=== PATIENT | female | born 1995 | race Caucasian/White ===

== ENCOUNTER 2023-07-28 09:55 | Emergency (ER) | payer OTHER, SELFPAY ==
--- NOTE | 2023-07-28 10:10 | ED.URI ---
HPI - URI/Sore Throat General Chief Complaint: Upper Respiratory Infection Stated Complaint: Rash/Chills Time Seen by Provider: 07/28/23 10:30 Source: patient, RN notes reviewed and old records reviewed Mode of arrival: ambulatory Limitations: no limitations History of Present Illness HPI Narrative: 28-year-old female presents to [facility] with complaints rash, general malaises, and fatigue that started yesterday. pt states had rash under left breast and left axilla for a week, pt states was places on terinafine a then rash started. Related Data Home Medications Medication Instructions Recorded Confirmed terbinafine HCl 250 mg tablet mg 07/28/23 Allergies Allergy/AdvReac Type Severity Reaction Status Date / Time No Known Allergies Allergy Verified 07/28/23 10:01 Review of Systems Constitutional: Constitutional: Reports as per HPI, Reports body ache(s) and Reports fatigue Eyes: Eyes: Reports no additional eye complaints ENT: Reports system reviewed and no additional complaints, except as documented Cardiovascular: Cardiovascular: Reports no additional cardiovascular complaints Respiratory: Respiratory: Reports no additional respiratory complaints Integumentary/Breasts: Skin/Breast: Reports as per HPI and Reports rash Neurologic: Reports system reviewed and no additional complaints, except as documented PMFSH Comments At the time of my signature, I reviewed and agree with the nursing past medical, surgical, social, and family history. There is no relevant family history pertinent to the patient complaint. Exam Const: General: cooperative, healthy appearing, no acute distress and well nourished Nutritional Appearance: well nourished Orientation/consciousness: patient oriented x3 Limitations: no limitations HENMT: Head: normal to inspection and normocephalic Ears: external ears normal, TM's normal bilaterally, mastoids normal and Abnormal EAC present Face/Nose/Sinus: normal facial exam Face and sinus: normal facial exam Mouth: Yes Normal oral and palatal mucosa present, Yes oropharynx normal and Yes moist mucous membranes Throat: posterior oropharynx normal, tonsils normal, uvula midline and no uvular edema Eyes: General: appearance normal, both eyes and all related structures Sclera: sclerae normal Pupils: Equal, round and reactive pupils present Resp: Effort & Inspection: normal respiratory effort, able to speak in complete sentences, no audible wheezes, no cough, no respiratory distress and no retractions Auscultation: clear to auscultation bilaterally, no crackles, no rales, no rhonchi and no wheezes Cardio: Rate: regular rate Rhythm: regular rhythm Skin: General skin exam: rashes Rashes: rashes noted ( urticarial rash noted to abdomen, neck, extremity. ) urticaria multiple locations color blanching and red Neuro: General: patient oriented x3 Cranial nerves: Yes Equal, round and reactive pupils present Psych: Appearance: grossly normal Course Course Emergency Course: Some parts of this dictation were generated by voice recognition software and may contain typographical and/or grammatical inaccuracies. Level of Care: Express Care Visit Vital Signs Vital signs: Reviewed MDM - URI/Sore Throat MDM Narrative Medical decision making narrative: patient with 2 rashes, 2nd started after starting terbinafine. patient's strep in clinic today was negative. Will discharge patient home and treat as allergic dermatitis with instructions on close monitoring and follow-up. Discussed plan of care with patient patient agreeable. Patient appropriate for discharge home and outpatient treatment. Patient is hemodynamically stable and non-septic appearing. Pt is appropriate for discharge home at this time in the setting of strict return/follow-up precautions to include s/s warranting immediate emergency department evaluation. Differential Diagnosis Differential diagnosis: Likely other ( allergic d
[2023-07-28 10:14] VITALS: BP 95/67; PULSE 84; RESP 18; TEMP 36.6; O2SAT 98
== END 2023-07-28 10:48 | disposition home or self-care (01) ==
PROVIDERS: Emergency Provider Registered Nurse
DX: L23.9 Allergic contact dermatitis, unspecified cause (principal)
CPT/HCPCS: 87081; 87880; 99213; G0463

== ENCOUNTER 2023-12-10 09:15 | Emergency (ER) | payer OTHER, SELFPAY ==
[2023-12-10 09:36] VITALS: BP 118/62; PULSE 59; RESP 16; TEMP 36.5; O2SAT 100
--- NOTE | 2023-12-10 10:12 | ED.GENADULT ---
HPI - General Adult General Chief complaint: Urogenital-Female Stated complaint: Urinary Problem Time Seen by Provider: 12/10/23 09:48 Source: patient, RN notes reviewed and old records reviewed Mode of arrival: ambulatory Limitations: no limitations History of Present Illness HPI narrative: 28-year-old female to Express Care with complaint of urinary frequency, urgency, retention, dysuria for 5 days. Patient has attempted to treat at home with [id number] medication with little relief. Patient denies nausea, fever, back pain. Related Data Allergies Allergy/AdvReac Type Severity Reaction Status Date / Time No Known Allergies Allergy Verified 07/28/23 10:01 Review of Systems Review of Systems: All systems reviewed & are unremarkable except as noted in HPI and below Constitutional: Constitutional: Reports as per HPI and Denies fever(s) Eyes: Eyes: Reports no additional eye complaints ENT: Reports system reviewed and no additional complaints, except as documented Cardiovascular: Cardiovascular: Reports no additional cardiovascular complaints, Denies chest pain and Denies dyspnea Respiratory: Respiratory: Reports no additional respiratory complaints, Denies cough and Denies dyspnea Gastrointestinal: Gastrointestinal: Reports abdominal pain (lower abd), Denies diarrhea, Denies nausea and Denies vomiting Genitourinary: Genitourinary: Reports as per HPI, Reports nocturia, Reports dysuria, Reports urinary hesitancy and Reports urinary urgency Musculoskeletal: Musculoskeletal: Reports no additional musculoskeletal complaints Neurologic: Reports system reviewed and no additional complaints, except as documented Psychiatric: Psychiatric: Reports no additional psychiatric complaints PMFSH Comments At the time of my signature, I reviewed and agree with the nursing past medical, surgical, social, and family history. There is no relevant family history pertinent to the patient complaint. Exam Const: General: cooperative, healthy appearing, comfortable, no acute distress, alert and well nourished Nutritional Appearance: well nourished Orientation/consciousness: patient oriented x3 Limitations: no limitations HENMT: Head: normal to inspection Ears: external ears normal Face/Nose/Sinus: Normal external nose present, Normal nares present, normal facial exam, No erythema and No edema Face and sinus: normal facial exam, no erythema and no edema Mouth: Yes Normal oral and palatal mucosa present Eyes: General: appearance normal, both eyes and all related structures Neck: Neck: normal visual inspection, full ROM and no meningeal signs Lymphatic: no lymphadenopathy noted and no lymphedema noted Chest: Chest palpation & inspection: normal inspection of the chest Resp: Effort & Inspection: normal respiratory effort and able to speak in complete sentences Auscultation: clear to auscultation bilaterally Cardio: Jugular venous distension: no JVD Rate: regular rate Rhythm: regular rhythm GI: GI Palp: Yes abdominal tenderness (lower) : General: Yes no CVA tenderness Back/Spine/Pelvis: Cervical Spine: cervical ROM normal Skin: General skin exam: normal color, no rashes or lesions noted and turgor normal Neuro: General: patient oriented x3, gait normal, moves all extremities and no meningeal signs Speech: normal speech Gait exam (Neuro): Normal gait present Extrem: General: normal to inspection, full ROM and capillary refill normal Psych: Appearance: grossly normal and well kempt Course Course Emergency Course: Some parts of this dictation were generated by voice recognition software and may contain typographical and/or grammatical inaccuracies. Level of Care: Express Care Visit Vital Signs Vital signs: Vital Signs Temperature 36.5 C 12/10/23 09:36 Pulse Rate 59 L 12/10/23 09:36 Respiratory Rate 16 12/10/23 09:36 Blood Pressure 118/62 12/10/23 09:36 Pulse Oximetry 100 12/10/23 09:36 Oxyg
== END 2023-12-10 10:24 | disposition home or self-care (01) ==
PROVIDERS: Emergency Provider Nurse Practitioner Family
DX: N30.01 Acute cystitis with hematuria (principal); B96.20 Unspecified Escherichia coli [E. coli] as the cause of diseases classified elsewhere
CPT/HCPCS: 81003; 87077; 87086; 87088; 87186; 99213; G0463

== ENCOUNTER 2024-10-10 15:14 | Emergency (ER) | payer OTHER, SELFPAY ==
[2024-10-10 15:20] VITALS: BP 124/79; PULSE 80; RESP 16; TEMP 36.7; O2SAT 100
[2024-10-10 15:45] LABS: EDCOVIDSCREEN Negative (Negative); EDINFLUASCREEN Positive (Negative); EDINFLUBSCREEN Negative (Negative); EDSTREPNEGPOS1 Negative (Negative)
--- NOTE | 2024-10-10 15:58 | ED.URI ---
HPI - URI/Sore Throat General Chief Complaint: Upper Respiratory Infection Stated Complaint: Sinus Congestion/Headache/Fever Time Seen by Provider: 10/10/24 15:45 Source: patient, RN notes reviewed and old records reviewed Mode of arrival: ambulatory Limitations: no limitations History of Present Illness HPI Narrative: 29year old female who presents to [facility] care with complaints of starting night with not feeling well with some sinus congestion, some fevers, ear pain, sore throat, and cough. Patient states that she has had diarrhea for the past 2 days when she eats. Patient reports that she has been taking Tylenol, Ibuprofen, cold and flu medication. MD elicited complaint: cough and sore throat Onset (ago): day(s) (4) Severity: moderate Treatments prior to arrival: acetaminophen, ibuprofen and other (cold and flu medication) Related Data Allergies Allergy/AdvReac Type Severity Reaction Status Date / Time amoxicillin Allergy Unknown Unknown Verified 10/10/24 15:27 Review of Systems Review of Systems: CONSTITUTIONAL:Reports malaise, chills, sweats, or fever. EYES: Denies visual changes, redness, or discharge. ENT: Reports rhinorrhea, congestion, sinus pain, positive for otalgia and sore throat. CARDIOVASCULAR: Denies chest pain, palpitations, or edema. RESPIRATORY: Reports cough.? Denies dyspnea. GASTROINTESTINAL: Denies abdominal pain, nausea, vomiting, + diarrhea SKIN: Denies rash or itching. MUSCULOSKELETAL: Reports myalgia. NEUROLOGIC: Reports headache. All systems reviewed & are unremarkable except as noted in HPI and below PMFSH Past Medical History Medical History (Updated 10/12/24 @ 19:55 by Alondra Silav NP) Urinary tract infection Social History Social History Smoking status: Never smoker Alcohol intake: current Alcohol use details: social Substance use type: does not use Living arrangements: with family Gender identity (if verbalized by the patient): Female Comments At time of signature, agree with nursing past medical, surgical, social and family history. There is no relevant family history pertinent to the presenting complaint Exam Narrative: GENERAL: Well-appearing, well-nourished, and in no acute distress. HEAD: Normocephalic EYES: PERRLA, conjunctivae clear ENT: Nares clear, turbinates edematous and erythematous, clear discharge, sinus pressure,. Mucous membranes moist. TM pearly berry with dull light reflex bilaterally; no tragal tenderness. Oropharynx erythematous without lesions. Tonsils not enlarged and without exudate, no drooling, no hoarseness, no trismus, uvula midline.post nasal drainage. NECK: Supple. No lymphadenopathy CHEST: Clear to auscultation, breath sounds equal. No wheezing, rhonchi, rales, or stridor. No respiratory distress, speaks in full sentences.cough noted SAO2 100% cough noted HEART: Regular rate and rhythm. No murmur heard. SKIN: Warm, dry, no rash. NEURO: Alert and oriented x3. PSYCH: Normal mood and affect Course Course Emergency Course: Patient is aware of diagnosis, understands and agrees to treatment plan.? Anticipatory guidance given.? Patient agrees to follow-up as directed and is aware of reasons to seek care at the emergency department. Portions of this record may have been created with voice recognition software Level of Care: Express Care Visit Vital Signs Vital signs: Vital Signs Temperature 36.7 C 10/10/24 15:20 Pulse Rate 80 10/10/24 15:20 Respiratory Rate 16 10/10/24 15:20 Blood Pressure 124/79 10/10/24 15:20 Pulse Oximetry 100 10/10/24 15:20 Oxygen Delivery Room Air 10/10/24 15:20 Temperature 36.7 C 10/10/24 15:20 Pulse Rate 80 10/10/24 15:20 Respiratory Rate 16 10/10/24 15:20 Blood Pressure 124/79 10/10/24 15:20 Pulse Oximetry 100 10/10/24 15:20 Oxygen Delivery Room Air 10/10/24 15:20 Reviewed MDM - URI/Sore Throat MDM Narrative Medical decision making narrative: Differential diagnosis considered: [place] virus, strep pharyngitis, allergic rhinitis, upper respiratory tract infection, sinusitis, rhinosinusitis, nasopharyngitis. viral pharyngitis, otitis media, otitis externa, pneumonia, bronchitis, viral cough syndrome, viral syndrome, and influenza.? Exam findings show no acute concerns or changes; patient is non-toxic appearing and is in no distress.? Patient is appropriate for outpatient treatment and follow-up. Differential Diagnosis Differential diagnosis: Likely upper respiratory infection, otitis media, viral infection, influenza, pharyngitis and other (COVID acute cough) Medical Records Attestation: I reviewed the patient's medical records. Lab Data Attestation: I reviewed the patient's lab results. Lab results narrative: Influenza A positive,Influenza B negative, COVID antigen negative, strep screen negative, culture sent Labs: Lab Results 10/10/24 Range/Units 15:28 POC Influenza A Ag Positive (Negative) POC Influenza B Ag Negative (Negative) POC SARS CoV-2 Ag Negative (Negative) POC Grp A Strep Screen Negative (Negative) reviewed Critical Care Time Critical Care Time Critical Care Time: No Discharge Plan Discharge Clinical Impression: Influenza A Patient Disposition: Home, Self-Care Condition: Stable Instructions: Antibiotic Form Additional Instructions: Increase fluids especially juices and water [id number] cough and cold medicine of your choice for your symptoms Continue your inhaler/nebulizer as directed Steroids as directed--take with food heat to the face 20-30 minutes 4-6 times a day for pain Salt water gargles, throat lozenges or throat sprays as desired Tylenol or ibuprofen for any fever pain recommend alternating so you can have something every 4 hours as needed You must be fever free for 24 hours without use of Tylenol or ibuprofen before you can return to work If your symptoms persist, change or worsen significantly before you can contact your personal physician then please, without delay, go to the emergency department for further evaluation. Follow-up with PCP in 7-10 days or sooner if needed Patient Language: [place] Prescriptions: New albuterol sulfate [Ventolin HFA] 90 mcg/actuation HFA aerosol inhaler 2 puff inhalation QID PRN (Reason: shortness of breath or wheezing) Qty: 6.7 0RF Follow-up/Referrals: PHYSICIAN,CUSTOMER EXPERIENCE ANALYST [Primary Care Provider] - Time of Disposition: 16:02 Quality [place] Coma Scale Eyes: Open Verbal: Oriented and Alert Motor: Follows Commands [place] Coma Total Score: 15
--- OUTSIDE RECORDS SUMMARY | 2024-10-10 17:55 | XMS_ITS | Referral Summary ---
Author Organization [facility] [employer] Address [address] [place] [address] Care Team Providers Care Emergency Department Aide Name Role Phone Unavailable Primary Care Provider Unavailabl e Source Comments [facility] [employer],non-owned Affiliates and Associated Physician Practices is amultiple site organization consisting of ambulatory clinics and hospital sitesin [place], [place] and [place]. This disclosure is being madepursuant to the Care Everywhere program and may not contain all information available regarding this patient. Last updated 18.[facility] [employer] Allergies Active Allergy Reactions Criticality Noted Date Comments Augmentin GI Discomfort 06/20/2019 Medications * Be aware that medications may not be up to date on this document. Alwaysverify current medications with the patient. Medication Sig Dispensed Refills Start Date End Date Status Ggkjfp-DeIlr-CJX-FA-DHA w/o A (VINI) 30-1.2-265 MG Take by mouth once daily Active Active Problems Comments Yes No known active problems Social History Tobacco Use Types Packs/Day Years Used Date Smoking Tobacco: Never Smokeless Tobacco: Never Tobacco Cessation:Counseling Given: Yes Alcohol Use Standard Drinks/Week Comments Not Asked 0 (1 standard drink = 0.6 oz pur e alcohol) Comments Yes Sex and Gender Information Value Date Recorded Sex Assigned at Not on file Gender Identity Not on file Sexual Orientation Not on file Last Filed Vital Signs Vital Sign Reading Time Taken Comments Blood Pressure 118/76 06/20/2019 11:54 AM CDT Pulse 104 06/20/2019 11:54 AM CDT Temperature 36.3 C (97.3 F) 06/20/2019 11:54 AM CDT Respiratory Rate 17 04/18/2019 2:04 PM CDT Oxygen Saturation 96% 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
--- OUTSIDE RECORDS SUMMARY | 2024-10-10 17:55 | XMS_ITS | Patient Health Summary ---
Author Organization [facility] [employer] Address [address] [place] [address] Care Team Providers Care Tabber Name Role Phone Unavailable Primary Care Provider Unavailabl e Note from [facility],non-owned Affiliates and Associated Physician Practices is amultiple site organization consisting of ambulatory clinics and hospital sitesin [place], [place], [place] and [place]. This disclosure is being madepursuant to the Care Everywhere program and may not contain all information available regarding this patient. Last updated 18.[facility] [employer] Allergies * Augmentin(GI Discomfort) * Amoxicillin(GI Discomfort),Inactive Medications * Be aware that medications may not be up to date on this document. Alwaysverify current medications with the patient. 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 Inhaled Oxygen Concentration - - Weight 74.8 kg (165 lb) 06/20/2019 11:54 AM CDT Height 170.2 cm (5' 7 ) 06/20/2019 11:54 AM CDT Body Mass Index 25.84 06/20/2019 11:54 AM CDT Procedures * STREP A SCREEN - POINT OF CARE (AMB) STL(Performed 10/13/2018) Performed for Acute frontal sinusitis, recurrence not specified * STREP A SCREEN - POINT OF CARE (AMB) STL(Performed 03/16/2018) Performed for Acute pharyngitis, unspecified etiology * STREP A SCREEN - POINT OF CARE (AMB) STL(Performed 05/05/2017) Performed for Strep throat * STREP A SCREEN - POINT OF CARE (AMB) STL(Performed 08/03/2016) Performed for Acute maxillary sinusitis, recurrence not specified Results * STREP A SCREEN (10/13/2018) Only the most recent of4 resultswithin the time period is included. Strep A Rapid POCT Negative Negative Strep A Internal Control Present Lot # [id number] Expiration Date 05/23/2020 Throat ENTIRE THROAT (SURFACE REGION OF NECK) / Unknown 10/13/2018 Janeth Fairbanks APRN-FISH AGENT LAB - POINT OF CARE ORDERABLES
--- OUTSIDE RECORDS SUMMARY | 2024-10-10 17:55 | XMS_ITS | Clinical Summary ---
Author Organization [facility] [employer] Address [address] [place] [address] Care Team Providers Care Customer Support Consultant Name Role Phone Unavailable Primary Care Provider Unavailabl e Source Comments [facility] [employer],non-owned Affiliates and Associated Physician Practices is amultiple site organization consisting of ambulatory clinics and hospital sitesin [place], [place], [place] and [place]. This disclosure is being madepursuant to the Care Everywhere program and may not contain all information available regarding this patient. Last updated [email or web address] Allergies Active Allergy Reactions Criticality Noted Date Comments Augmentin GI Discomfort 06/20/2019 Medications * Be aware that medications may not be up to date on this document. Alwaysverify current medications with the patient. 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 Inhaled Oxygen Concentration - - Weight 74.8 kg (165 lb) 06/20/2019 11:54 AM CDT Height 170.2 cm (5' 7 ) 06/20/2019 11:54 AM CDT Body Mass Index 25.84 06/20/2019 11:54 AM CDT Plan of Treatment Health Maintenance Due Date Last Done Comments PAP SMEAR 1993 HIV SCREENING 2008 HEPATITIS C SCREENING 05/11/2011 DTAP/TDAP/TD VACCINES (1 - Tdap) 2012 HEPATITIS B VACCINE (1 of 3 - 19+ 3-dose series) 2012 COVID-19 VACCINE ( - 2023-2 5 season) 2024 INFLUENZA VACCINE (#1) 2024 06/10/2019 DEPRESSION SCREENING 08/24/2024 ZOSTER VACCINE (1 of 2) 2043 Respiratory Syncytial Virus (RSV) Vaccine Pt: or over 60 yrs (1 - 1-dose 75+ series) 2068 HIB VACCINE Aged Out No longer eligi ble based on patient's age to complete this topic HPV VACCINE Aged Out No longer eligi ble based on patient's age to complete this topic MENINGOCOCCAL (Group B) VACCINE Aged Out No longer eligible based on patient's age to complete this topic MENINGOCOCCAL VACCINE Aged Out No enzo sherif eligible based on patient's age to complete this topic PNEUMOCOCCAL VACCINE Aged Out No long er eligible based on patient's age to complete this topic
--- OUTSIDE RECORDS SUMMARY | 2024-10-10 17:55 | XMS_ITS | Clinical Summary ---
Author Organization [facility] Address [address] [place] [address] Phone Care Team Providers Care Gate Cutter Name Role Phone Provider, None Primary Care Provider Unavailabl e Allergies Active Allergy Reactions Criticality Noted Date Comments Amoxicillin-Pot Clavulanate Nausea 06/20/20 19 Medications traZODone (DESYREL) 50 MG Tablet Take 1 Tab by mouth nightly. 20 Tab 08/26/2017 Active Active Problems No known active problems Social History Tobacco Use Types Packs/Day Years Used Date Smoking Tobacco: Never Smokeless Tobacco: Never Alcohol Use Standard Drinks/Week Comments No 0 (1 standard drink = 0.6 oz pur e alcohol) Comments No Sex and Gender Information Value Date Recorded Sex Assigned at Not on file Legal Sex Female 11:44 PM CDT Gender Identity Not on file Sexual Orientation Not on file Last Filed Vital Signs Vital Sign Reading Time Taken Comments Blood Pressure 110/62 01/01/2021 8:58 AM CDT Pulse 93 01/01/2021 8:58 AM CDT Temperature 36.8 C (98.3 F) 01/01/2021 8:58 AM CDT Respiratory Rate 16 01/01/2021 8:58 AM CDT Oxygen Saturation 98% 01/01/2021 8:58 AM CDT Inhaled Oxygen Concentration - - Weight 61.2 kg (135 lb) 01/01/2021 8:58 AM CDT Height 170.2 cm (5' 7 ) 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 Body Mass Index 21.14 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 Plan of Treatment Health Maintenance Due Date Last Done Comments Hepatitis C Virus (HCV) Screening 1993 Hepatitis B Immunization (1 of 3 - 19+ 3-dose series) 2012 Pap Smear 2014 Cervical Cancer Screening (CCS) 2023 HPV/Cotest 2023 Influenza Immunization (#1) 2024 06/10/2019 SARS-COV-2 Immunization ( season) 2024 06/04/2021, 05/14/2021 Respiratory Syncytial Virus (RSV) Immunization (Adult) (1 - 1-dose 75+ series) 2068 DTaP/Tdap/Td Immunization Discontinued 2018, 12/20/2015 TdaP Immunization Completed 06/10/2019 Meningococcal Immunization (ACWY) Aged Out No longer eligible based on patient's age to complete this topic Pneumococcal Immunization Combined Aged Out No longer eligible based on patient's age to complete this topic Rotavirus Immunization Aged Out No lo nger eligible based on patient's age to complete this topic Care Teams Gate Cutter Relationship Specialty Start Date End Date Provider, None [place] PCP - General 07/21/15
--- OUTSIDE RECORDS SUMMARY | 2024-10-10 17:55 | XMS_ITS | Continuity of Care Document ---
Author Organization [facility] Address [address] [place] [address] [place] [address] Phone Care Team Providers Care Toll Settlement Clerk Name Role Phone Tha March MD Unavailable Unavailable Allergies, Adverse Reactions, Alerts Substance Reaction Status Criticality No Known Allergies Active No Inform ation Medications Medication Instructions Dosage Effective Dates (start - stop) Status Comments Artificial Tears (polyvinyl alcohol) 1.4 % eye drops instill 1 drop by ophthalmic route 3 times every day 1 drop - Active Prena1 True 30 mg iron-1.4 mg-300 mg oral pack - Active Procedures Procedure Date Office/outpatient Visit, Est Office/outpatient Visit, New Advance Directives Directive Yes / No Effective Date File Name No Information Encounters Encounter Description Practice Location Reason(s) For Visit Diagnoses Date Provider Providers Copied on Encounter Office/outpa tient Visit, [facility], [address] [place] [address] [address], [place], [place], [id number], [place] tel:[phone] SEC Charlie Heath Follow Up (chief complaint) Traumatic iritisCorneal edema of left eye23 weeks gestation of 0-201 9 Joaquim Almazan. [address] [facility], [address], [place], [place], [id number], [place]. tel:[phone] Referring Provider: Rosaline Fowler OD, [address], [place], [address]. tel:[phone] Office/outpa tient Visit, [facility], [address], [place], [place], [id number], [place] tel:[phone] SEC William CRYSTAL Professional WIE (chief complaint) Traumatic weeks gestation of pregnancyCorn eal edema of left eyeBullae 9 Joaquim Almazan. [address] [facility], [address], [place], [place], [id number], [place]. tel:[phone] Referring Provider: Rosaline Fowler OD, [facility] [address] [place] [address], [address]. tel:[phone] Family History Family Member Type Diagnosis Age At Onset No Information Payers Payer name Insurance type Covered libertarian ID Rose Marie mike(gregoria) [employer] OSPINA [id number] Social History Type Description Quantity Date Captured Comments Alcohol Use Details No Caffeine Use Details No Tobacco Use Status Current non-smoker 17 Smoking Status Never smoker Non-Smoking Tobacco Use Details : No Details Available : No Details Available Sex Female Chief Complaint And Reason For Visit From encounter dated '05/03/2019 13:15'. Follow Up (chief complaint). Description: The 23 year old female presents for evaluation of 4 day Follow Up in the left eye. Seen in the clinic for traumatic iritis and corneal edema 04/29/2019. Pt is 23 to 24 weeks so not topical or steroid therapy at this time. BCL OS night and day 8.6 13.8 -0.25. Pt is using artificial tears TID-QID OS, pt reports good compliance. Pt reports it has gotten a lot better, still a little blurry though. Pt denies dryness, watering, itching and burning OS. Pt reports mild swelling still and states it is a little tender still. Reason For Referral Reason For Referral No Information Plan Of Treatment Date Type Action Status Patient Education Iritis: Care Instructglenna solo completed Patient Education Iritis: Care Instructglenna solo completed History Of Present Illness Encounter Date Complaint History Of Prese nt Illness Follow Up The 23 year old female presents for evaluation of 4 day Follow Up in the left eye. Seen in the clinic for traumatic iritis and corneal edema 04/29/2019. Pt is 23 to 24 weeks so not topical or steroid therapy at this time. BCL OS night and day 8.6 13.8 -0.25. Pt is using artificial tears TID-QID OS, pt reports good compliance. Pt reports it has gotten a lot better, still a little blurry though. Pt denies dryness, watering, itching and burning OS. Pt reports mild swelling still and states it is a little tender still. WIE The 23 year old female presents for evaluation of WIE in the left eye. Patient states she scratched her left eye with a heating pad 3 days ago. Patient states OS is painful, watering, and light sensitive. Patient does not have a PCP Functional Status Date Functional Assessmen t No Information Instructions Date Instruction Additional Infor mayco Impression/Plan Impression/Plan Assessments Type Assessment Date assessment Traumatic iritis assessment Corneal edema of left eye assessment 23 weeks gestation of Patient Care Teams Name Effective Dates (start - stop) Status Members No Information
--- OUTSIDE RECORDS SUMMARY | 2024-10-10 17:55 | XMS_ITS | Referral Summary ---
Author Organization [facility] Medical Office Building B Address [address] [place] [address] Care Team Providers Care Furniture Servicer Name Role Phone No, Physician Primary Care Provider [phone] Encounters Date Type Department Care Team Description 09/08/2024 3:00 PM PRODUCTION PATTERN MAKER Office Visit [facility] [address] [facility] [address] [place] [address] Karla Ochoa NP Well woman exam (Primary Dx) from Last 3 Months Allergies Active Allergy Reactions Criticality Noted Date Comments Amoxicillin-Pot Clavulanate Stomach upset,Nausea only Low 06/20/2019 Patient does not believe she has an allergy. Medications nystatin cream APPLY TOPICALLY TO THE AFFECTED AREA TWICE DAILY FOR 10 DAYS 3 Active predniSONE (DELTASONE) 20 mg tablet Take 1 tablet (20 mg) by mouth 3 Active fluconazole (DIFLUCAN) 150 mg tablet Take one tablet and repeat in 3 days. 2 tablet 4 Active Active Problems No known active problems Resolved Problems Problem Noted Date Diagnosed Date Resolved Date Vaginal delivery 10/18/2019 41 weeks gestation of 10/18/2019 Immunizations Immunization Administration Dates Next Due Influenza, Quadrivalent, Spl it, Preservative Free, Intramuscular 06/10/2019 Tdap 06/10/2019 Social History Tobacco Use Types Packs/Day Years Used Date Smoking Tobacco: Never Smokeless Tobacco: Never Tobacco Cessation:Counseling Given: Not Answered Alcohol Use Standard Drinks/Week Comments No 0 (1 standard drink = 0.6 oz pur e alcohol) PHQ-2 Answer Date Recorded PHQ-2 Total Score (If total score is 3 or more points, staff should administer the PHQ-9) 0 09/08/2024 Comments No Sex and Gender Information Value Date Recorded Sex Assigned at Not on file Legal Sex Female 11:33 AM PRODUCTION PATTERN MAKER Gender Identity Not on file Sexual Orientation Not on file Last Filed Vital Signs Vital Sign Reading Time Taken Comments Blood Pressure 118/70 09/08/2024 3:10 PM PRODUCTION PATTERN MAKER Pulse 125 04/14/2022 9:56 AM CDT Temperature 38.3 C (101 F) 04/14/2022 9:56 AM CDT Respiratory Rate 18 04/14/2022 9:56 AM CDT Oxygen Saturation 98% 04/14/2022 9:56 AM CDT Inhaled Oxygen Concentration - - Weight 74 kg (163 lb 3.2 oz) 09/08/2024 3:10 PM PRODUCTION PATTERN MAKER Height 170.2 cm (5' 7 ) 09/08/2024 3:10 PM PRODUCTION PATTERN MAKER Body Mass Index 25.56 09/08/2024 3:10 PM PRODUCTION PATTERN MAKER Plan of Treatment Not on file Procedures Procedure Name Priority Date/Time Associated Diagnosis Comments PAP, REFLEX HPV Routine 09/08/2024 3:40 PM PRODUCTION PATTERN MAKER Well woman exam HEPATITIS C ANTIBODY Routine 03/10/2019 4:13 PM CDT Encounter for supervision of normal first in first trimester 11 weeks gestation of from Last 3 Months or Most Recently Relevant to Health Maintenance Results * (ABNORMAL) Pap, reflex HPV (09/08/2024 3:40 PM PRODUCTION PATTERN MAKER) CLINICAL INFORMATION: Alanna Alvarenga Comment:Routine exam LMP Alanna Alvarenga Comment:08/25/24 Previous Pap Alanna Alvarenga Comment:None given Prev. Bx Alanna Alvarenga Comment:None given SOURCE: Alanna Alvarenga Comment:Cervix, Endocervix Pap, specimen adequacy Alanna Alvarenga Comment: Satisfactory for evaluation. Endocervical/transformation zone component present. Pap, general categorization (A) Alanna Alvarenga Comment:Cytology Results: Ep ithelial Cell Abnormality HPV interp (A) Alanna Alvarenga Comment:Low Grade Squamous I ntraepithelial Lesion (LSIL) COMMENTS [facility] Comment: This Pap test has been evaluated with computer assisted technology. Suggest clinical correlation and follow-up as clinically appropriate Air Bag Builder Que [facility] Alvarenga Comment: [place], CT(ASCP) CT screening location: [place] [address] [place] [address] Pathologist [facility] Alvarenga Comment: Phillip Farias M.D., Board Certified in Anatomic Pathology and Cytopathology. (electronic signature) Comment [facility] Al[facility]ga Comment: EXPLANATORY NOTE: The Pap is a screening test for cervical cancer. It is not a diagnostic test and is subject to false negative and false positive results. It is most reliable when a satisfactory sample, regularly obtained, is submitted with relevant clinical findings and history, and when the Pap result is evaluated along with historic and current clinical information. Thin prep 09/08/2024 3:40 PM PRODUCTION PATTERN MAKER 09/09/2024 2:53 AM PRODUCTION PATTERN MAKER us Karla Ochoa NP LAB CYTOLOGY ORDERABLES Final Re sult Performing Organization Address [facility]/ZIP Co de Phone Number [place] [address] [place] [address] * Hepatitis C antibody (03/10/2019 4:13 PM CDT) Hep C Ab Negative Negative TINO TOBIAS (CARLINE) Comment:Testing performed by : [facility], [address] [place] [address]., [address] Blood specimen (specimen) 03/10/2019 4:13 PM CDT 03/11/2019 10:50 AM CDT Olivier Serrano MD LAB MICROBIOLOGY - GENERAL ORDERABLES Final Result TINO TOBIAS (CARLINE) [address] [facility] Department [place] [address] from Last 3 Months or Most Recently Relevant to Health Maintenance Insurance CIGNA CIGNA Advance Directives For more information, please contact: [phone] * Full Code (Latest Code Status on File) Date Activated Date Inactivated Comments 09/06/2019 5:55 AM 09/08/2019 10:50 PM Full CPR in case of cardiopulmonary arrest Care Teams Furniture Servicer Relationship Specialty Start Date End Date No, Physician PCP - General 05/04/17
--- OUTSIDE RECORDS SUMMARY | 2024-10-10 17:55 | XMS_ITS | Clinical Summary ---
Author Organization [facility] Medical Office Building B Address [address] [place] [address] Care Team Providers Care Stemhole Borer And Topper Name Role Phone No, Physician Primary Care Provider [phone] Allergies Active Allergy Reactions Criticality Noted Date [...] delivery 10/18/2019 41 weeks gestation of 10/18/2019 Encounters Date Type Department Care Team Description 09/08/2024 3:00 PM MEDICAL RECORD CLERK Office Visit [facility] [address] [facility] [address] [place] [address] Karla Ochoa NP Well woman exam (Primary Dx) from Last 3 Months Immunizations Immunization Administration Dates Next Due Influenza, Quadrivalent, Spl it, Preservative Free, Intramuscular 06/10/2019 Tdap 06/10/2019 Surgical History Surgery Date Site/Laterality Comments VAGINAL DELIVERY 09/06/2019 NO PAST SURGERIES Medical History Medical History Date Comments No pertinent past medical history Family History Medical History Relation Name Comments Breast cancer Maternal Grandmother Relation Name Status Comments Father Maternal Grandmother Social History Tobacco Use Types Packs/Day Years [...] on file Legal Sex Female 11:33 AM MEDICAL RECORD CLERK Gender Identity Not on file Sexual Orientation Not on file Obstetrics History Para Term AB IAB SAB Ectopic Multiple Livin g Live Births 2 1 1 0 1 0 1 0 0 1 1 Date Outcome GA Total Labor Labor/2nd/3rd Weight Sex Type Anes PTL Ariadna A1 A5 Name Clin 2019 Term 41w 0d 3h 08m 2h 35m/0h 25m/0h 08m 3.697 kg (8 lb 2.4 oz) F Vag-S pont Epidur al N Livin g 8 9 ANDREW ,GIRL CHARITY Serrano , Olivier Merritt MD Complications:None Delivery Location:This [facility] 2020 SAB SAB Last Filed Vital Signs Vital Sign Reading Time Taken Comments Blood Pressure 118/70 09/08/2024 3:10 PM MEDICAL RECORD CLERK Pulse 125 04/14/2022 9:56 AM CDT Temperature 38.3 C (101 F) 04/14/2022 9:56 AM CDT Respiratory Rate 18 04/14/2022 9:56 AM CDT Oxygen Saturation 98% 04/14/2022 9:56 AM CDT Inhaled Oxygen Concentration - - Weight 74 kg (163 lb 3.2 oz) 09/08/2024 3:10 PM MEDICAL RECORD CLERK Height 170.2 cm (5' 7 ) 09/08/2024 3:10 PM MEDICAL RECORD CLERK Body Mass Index 25.56 09/08/2024 3:10 PM MEDICAL RECORD CLERK Plan of Treatment Health Maintenance Due Date Last Done Comments Varicella Vaccines (1 of 2 - 13+ 2-dose series) 2006 Hepatitis B Screening 2011 Covid-19 Vaccine ( season) 2024 06/04/2021, 05/14/2021 Influenza Vaccine (#1) 2024 06/10/2019 Cervical Cancer Screening 09/08/20252024, 08/27/2023, 05/26/2022, Additional history exists Depression Screening 09/08/2025 09/08/2024, 08/27/2023, 05/26/2022, Additional history exists Regular Well Visit/Exam 18-64 09/08/2025 09/08/2024, 08/27/2023, 05/26/2022, Additional history exists DTaP/Tdap/Td Vaccine (2 - Td or Tdap) 06/10/2029 06/10/2019, 12/20/2015 Hepatitis C Screening Completed 03/10/2019 HPV Vaccines Aged Out No longer eligi ble based on patient's age to complete this topic Pneumococcal vaccine <65 Aged Out No longer eligible based on patient's age to complete this topic Procedures Procedure Name Priority Date/Time Associated Diagnosis Comments PAP, REFLEX HPV Routine 09/08/2024 3:40 PM MEDICAL RECORD CLERK Well woman exam HEPATITIS C ANTIBODY Routine 03/10/2019 4:13 PM CDT Encounter for supervision of normal first in first trimester 11 weeks gestation of from Last 3 Months or Most Recently Relevant to Health Maintenance Results * (ABNORMAL) Pap, reflex HPV (09/08/2024 3:40 PM MEDICAL RECORD CLERK) CLINICAL INFORMATION: Alanna Alvarenga Comment:Routine exam LMP [...] Grade Squamous I ntraepithelial Lesion (LSIL) COMMENTS Alanna Alvarenga Comment: This Pap test has been evaluated with computer assisted technology. Suggest clinical correlation and follow-up as clinically appropriate Telephone Lineworker Que [facility] Alvarenga Comment: KYLEIGH, CT(ASCP) CT screening location: [place] [address] [place] [address] [facility] arreola Lyle Comment: Phillip Farias M.D., Board Certified in Anatomic Pathology and Cytopathology. (electronic signature) Comment [facility] Alvarenga Comment: EXPLANATORY NOTE: The Pap is [...] clinical information. Thin prep 09/08/2024 3:40 PM MEDICAL RECORD CLERK 09/09/2024 2:53 AM MEDICAL RECORD CLERK us Karla Ochoa NP LAB CYTOLOGY ORDERABLES Final Re sult Performing Organization Address City/[facility]/ZIP Co de Phone Number [place] [address] [place] [address] * Hepatitis C antibody (03/10/2019 4:13 PM CDT) Hep C Ab Negative Negative TINO TOBIAS (CARLINE) Comment:Testing performed by : [facility], [address] [place] [address]., [address] Blood specimen (specimen) 03/10/2019 4:13 PM CDT 03/11/2019 10:50 AM CDT us Olivier Serrano MD LAB MICROBIOLOGY - GENERAL ORDERABLES Final Result TINO TOBAIS (CARLINE) 1 [facility] Department [place] [address] from Last 3 Months or Most Recently Relevant to Health Maintenance Insurance CIGNA CIG Advance Directives For more information, please contact: [phone] * Full Code (Latest Code Status on File) Date Activated Date Inactivated Comments 09/06/2019 5:55 AM 09/08/2019 10:50 PM Full CPR in case of cardiopulmonary arrest Care Teams Stemhole Borer And Topper Relationship Specialty Start Date End Date No, Physician PCP - General 05/04/17
--- OUTSIDE RECORDS SUMMARY | 2024-10-10 17:57 | XMS_ITS | Continuity of Care Document ---
Author Organization [facility] Address [address] [place] [address] [place] [address] Phone Care Team Providers Care Indirect Sales Exec Name Role Phone Tha March MD Unavailable [...] Providers Copied on Encounter Office/outpa [place]ient Visit, [facility], [address] [place] [address] [address], [place], [place], [id number], [place] tel:[phone] SEC Charlie Heath Follow Up (chief complaint) Traumatic iritisCorneal edema of left eye23 weeks gestation of 0-201 9 Joaquim Almazan. [address] [facility], [address], [place], [place], [id number], [place]. tel:[phone] Referring Provider: Rosaline Fowler OD, [address], [place], [address]. tel:[phone] Office/outpa tient Visit, [facility], [address], [place], [place], [id number], [place] tel:[phone] SEC William CRYSTAL Professional WIE (chief complaint) Traumatic rrpvum71 weeks gestation of pregnancyCorn eal edema of left eyeBullae 9 Joaquim Almazan. [address] [facility], [address], [place], [place], [id number], [place]. tel:[phone] Referring Provider: Rosaline Fowler OD, [facility] [address] [place] [address], [address]. tel:[phone] Family History Family Member Type Diagnosis Age At Onset No Information Payers Payer name Insurance type Covered republican ID Rose Marie mike(gregoria) [employer] OSPINA [id number] Social History Type Description Quantity Date Captured [...]
== END 2024-10-10 16:15 | disposition home or self-care (01) ==
PROVIDERS: Emergency Provider Registered Nurse
DX: J10.1 Influenza due to other identified influenza virus with other respiratory manifestations (principal); Z20.822 Contact with and (suspected) exposure to COVID-19
CPT/HCPCS: 87081; 87426; 87804; 87880; 99213; G0463